=== PATIENT | male | born 1955 | race Caucasian/White ===

== ENCOUNTER 2020-05-17 08:53 | Inpatient (IN) | payer OTHER, SELFPAY ==
[2020-05-17] VITALS (19 sets, daily range): BP systolic 86–117; BP diastolic 56–71; PULSE 50–81; RESP 12–18; TEMP 36.7–37.6; O2SAT 91–100; BMI 32.4
--- NOTE | ~2020-05-17 | CT_ITS ---
EXAMINATION: CT brain wo con EXAM DATE: 05/17/2020 09:28 INDICATION: Same day. TECHNIQUE: Spiral CT of the head was performed without contrast. Axial, coronal and sagittal images were reviewed. The dose-length product (DLP) for this examination was 605.33 mGy-cm. The exposure w as tailored according to patient size, and iterative reconstruction (ASIR) was used as additional dos e reduction technique. There is no prior study for comparison. FINDINGS: There is no acute intraparenchymal hemorrhage. No evidence of intraparenchymal brain mass lesion. No evidence of acute infarction. There is no mass effect or midline shift. The ventricles are normal in size. There are no extra-axial collections. There are no acute calvarial fractures. T he orbits are unremarkable. Soft tissue is unremarkable. The visualized sinuses and mastoid air sara ls are well aerated. IMPRESSION: 1. No acute intracranial findings. Reviewed, dictated and finalized at location A.
--- NOTE | ~2020-05-17 | XR_ITS ---
EXAMINATION: XR chest 1V portable EXAM DATE: 05/17/2020 09:47 INDICATION: Syncope. TECHNIQUE: Portable AP frontal chest x-ray was obtained. There is no prior study for comparison. FINDINGS: The lungs are clear. There are no pleural effusions. Cardiac silhouette is prominent but magnified on this AP technique. There is no pneumothorax suspected. The bones and soft tissues are unremarkable. IMPRESSION: No acute cardiopulmonary findings. Reviewed, dictated and finalized at location A.
[2020-05-17 09:01] LABS: Glucose Point of Care 135 (65-105)
--- NOTE | 2020-05-17 09:05 | ED.SYNCOPE ---
HPI - Syncope General Chief Complaint: Syncope Stated Complaint: SYNCOPE Time Seen by Provider: 05/17/20 08:56 History of Present Illness HPI narrative: Patient presents via EMS for syncope. He does not remember the initial episode. Apparently he passed out for more times during transport. They gave atropine 0.5 mg for bradycardia. They also gave a liter of fluid. His pressure is 90 when he came here. He has had cough and fever for the last 4 days. He had a coworker test positive for COVID recently. He takes nitrates and beta-blockers on a daily basis. He has no pain. He still feels lightheaded. He has some sputum production with his cough. Surgeries include right shoulder and cholecystectomy. He does not smoke cigarette, he rarely drinks alcohol, he does not do drugs. 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 MD complaint: loss of consciousness Onset (ago): hour(s) -: second(s) Description of event: other (Bradycardia) Prodromal symptoms: lightheaded Witnessed: Yes - by Bystander Context: at rest and recent illness Injuries sustained associated with event: none Current symptoms: lightheaded History: other (Exposure to COVID, cough, fever) Treatments prior to arrival: IV fluids and other (Atropine 0.5 mg, 1 L of IV fluids) Related Data Home Medications Medication Instructions Recorded Confirmed amoxicillin 875 mg 05/17/20 aspirin [Aspir-81] 81 mg PO 05/17/20 azithromycin 250 mg 05/17/20 cholecalciferol (vitamin D3) 125 mcg PO DAILY 05/17/20 [Vitamin D3] coQ10 (ubiquinol) 200 mg PO DAILY 05/17/20 isosorbide mononitrate 30 mg PO DAILY 05/17/20 losartan 25 mg PO DAILY 05/17/20 metoprolol succinate 25 mg PO DAILY 05/17/20 niacin 500 mg 05/17/20 omeprazole 40 mg 05/17/20 rosuvastatin 40 mg PO DAILY 05/17/20 05/17/20 Allergies Allergy/AdvReac Type Severity Reaction Status Date / Time No Known Allergies Allergy Verified 05/17/20 09:06 Review of Systems Review of Systems: Narrative: CONSTITUTIONAL: He has had fever EYES: Denies visual changes, redness, or discharge. ENT: Denies rhinorrhea, congestion, sore throat, or otalgia. CARDIOVASCULAR: Denies chest pain, palpitations, or edema. He has been fainting. RESPIRATORY: He has cough but not dyspnea or wheezing. GASTROINTESTINAL: Denies abdominal pain, nausea, vomiting, or diarrhea. GENITOURINARY: Denies dysuria or hematuria. SKIN: Denies rash or itching. MUSCULOSKELETAL: Denies back pain, joint pain, or myalgia. NEUROLOGIC: Denies headache, numbness, or weakness. . PMFSH Past Medical History Medical History Hypercholesterolemia Hypertension Surgical History Surgical History (Updated 05/17/20 @ 09:11 by Eva Villafuerte MD) History of cholecystectomy History of shoulder surgery Family History Family History Other Diabetes mellitus Family history of malignant neoplasm Hypertension Social History Social History Smoking status: Former smoker Smoking end date: 10/20/12 Alcohol intake: current Gender identity (if verbalized by the patient): Male Exam Narrative: Exam Narrative: GENERAL: Well-appearing, well-nourished, and in no acute distress. HEAD: Normocephalic, atraumatic. EYES: PERRLA and EOMI. ENT: Nares clear, no rhinorrhea or epistaxis. Mucous membranes moist. NECK: Supple. CHEST: Clear to auscultation. No respiratory distress. HEART: Regular rate and rhythm. No murmur heard. Normal peripheral pulses. Bradycardic. ABDOMEN: Soft, nontender, nondistended, normal active bowel sounds. EXTREMITIES: Normal range of motion. No edema. SKIN: Warm, dry, no rash. NEURO: No focal deficits. Alert and oriented x3. PSYCH: Normal mood and affect. Course Consultations Consultation #1: Calling the hospitalist for admission, for syncope, hypotension, bradycard
[2020-05-17] MEDS: SODIUM CHLORIDE 0.9% IV 1,000 ML 999 ML IV CONT ×2 (09:18→11:41)
[2020-05-17 09:27] LABS: Basophils Percent Auto 0.4 % (0.2-1.2); Eosinophils Percent Auto 0.2 % (0-4.4); Hematocrit 41.2 % (42.0-52.0); Hemoglobin 13.7 g/dL (14.0-18.0); Immature Granulocyte Absolute 0.04 K/mm3 (0.00-0.031); Immature Granulocyte Percent A 0.8 % (0-0.5); Lymphocytes Percent Auto 16.2 % (18.3-44.2); Mean Corpuscular HGB Conc 33.3 g/dl (32-36); Mean Corpuscular Volume 90.4 fl (80-100); Mean Platelet Volume 10.1 fl (7.4-10.4); Monocytes Absolute Auto 0.6 K/mm3 (0.1-0.6); Monocytes Percent Auto 11.4 % (2.6-8.5); Neutrophils Absolute Auto 3.5 K/mm3 (1.3-6.7); Platelet Count Result 162 k/mm3 (150-375); Red Blood Count 4.56 M/mm3 (4.6-6.20); Red Cell Distribution Width 12.7 % (11.5-14.5); White Blood Count 4.9 K/mm3 (4.5-10.0)
[2020-05-17 09:46] LABS: Alanine Aminotransferase 64 U/L (4-50); Albumin Level 3.7 g/dL (3.5-5.1); Alkaline Phosphatase 45 U/L (38-126); Aspartate Amino Transferase 53 U/L (17-59); Bilirubin,Total 0.7 mg/dL (0.2-1.3); Calcium 7.9 mg/dL (8.4-10.2); Carbon Dioxide 22 mmol/L (22-30); Estimated Glomerular Filt Rate > 60; Glucose 135 mg/dL (75-110); Potassium 3.8 mmol/L (3.4-5.0); Sodium 136 mmol/L (137-145)
[2020-05-17 09:50] LABS: Ethanol < 10 mg/dL (<10)
[2020-05-17 09:55] LABS: Troponin I < 0.012 ng/mL (0.000-0.034)
[2020-05-17 10:00] LABS: Anion Gap 12.8 mmol/L (7-16); Blood Urea Nitrogen 16 mg/dL (9-20); Chloride 105 mmol/L (98-107)
[2020-05-17 10:40] LABS: Add Urine Microscopic? YES; Appearance Urine Clear (Clear); Bilirubin Urine Negative (Negative); Blood Urine Negative (Negative); Color Urine Yellow (Yellow); Glucose Urine UA Negative (Negative); Ketones Urine Negative (Negative); Leukocyte Esterase Ur Negative LEU/UL (Negative); Mucus Urine Rare /lpf; Nitrate Urine Negative (Negative); Protein Urine 2+ mg/dL (Negative); RBC Urine 0-2 /hpf (0-2); Specific Grav Ur 1.027 (1.001-1.035); Squamous Epithelial Cell Urine Rare /hpf (Few); Urobilinogen Urine Negative mg/dL (<2.0); WBC Urine 0-3 /hpf
[2020-05-17 10:54] LABS: Amphetamine Screen Urine Negative (Negative); Barbiturate Screen Urine Negative (Negative); Benzodiazepines Screen Urine Negative (Negative); Cannabinoid Screen Urine Negative (Negative); Cocaine Screen Urine Negative (Negative); Methadone Screen Urine Negative (Negative); Opiate Screen Urine Negative (Negative); Phencyclidine Screen Urine Negative (Negative)
--- NOTE | 2020-05-17 11:31 | PC.NURSE ---
Report given to LIN Donaldson by this RN. Care assumed by Anika at this time.
--- NOTE | 2020-05-17 11:44 | PC.NURSE ---
Checked on patient. Resting in room with no needs. EDP at bedside updating pt. IV fluuids started
[2020-05-17 12:37] LABS: Troponin I < 0.012 ng/mL (0.000-0.034)
--- NOTE | 2020-05-17 12:56 | ADMGEN ---
This patient, Phuc Campo, was admitted to 3 Med Surg Room 331-01 @ 1255. Patient/family oriented to hospital policies and general routines including ID bracelet, bed and alarms, visiting hours, pain management, procedures, bathroom and other care routines, personal items, smoking policy, room service/diet, and visiting hours. Valuables list has been completed. Information on how to activate the Rapid Response Team has been discussed. Patient/Family are encouraged to report perceived risks to care and to ask questions if they do not understand what they are told or what they should do.
--- NOTE | 2020-05-17 14:32 | ECG_ITS ---
Measurements Intervals [place] Rate: 53 P: 55 AR: 193 QRS: -23 QRSD: 126 T: 44 QT: 418 QTc: 393 Interpretive Statements SINUS BRADYCARDIA INCOMPLETE RIGHT BUNDLE BRANCH BLOCK DELAYED PRECORDIAL R/S TRANSITION BORDERLINE ECG Electronically Signed On 05-17-2020 16:06:04 CDT by Thanh Sutton D.O.
--- NOTE | 2020-05-17 15:07 | ECG_ITS ---
Measurements Intervals [place] Rate: 59 P: 45 MT: 165 QRS: -43 QRSD: 106 T: 31 QT: 421 QTc: 420 Interpretive Statements SINUS BRADYCARDIA LEFT AXIS DEVIATION INCOMPLETE RIGHT BUNDLE BRANCH BLOCK DELAYED PRECORDIAL R/S TRANSITION BORDERLINE ECG Electronically Signed On 05-17-2020 16:32:13 CDT by Thanh Sutton D.O.
[2020-05-17 15:34] LABS: Lactic Acid Reflex 1.5 mmol/L (0.7-2.1)
[2020-05-17 15:36] LABS: Anion Gap 11.1 mmol/L (7-16); Blood Urea Nitrogen 15 mg/dL (9-20); CRP 1.3 mg/dL (<1.0); Calcium 7.6 mg/dL (8.4-10.2); Carbon Dioxide 24 mmol/L (22-30); Chloride 105 mmol/L (98-107); Estimated CRCL calculation 106 ml/min; Estimated Glomerular Filt Rate > 60; Glucose 153 mg/dL (75-110); Lactate Dehydrogenase 440 U/L (313-618); Magnesium 1.9 mg/dL (1.6-2.3); Potassium 4.1 mmol/L (3.4-5.0); Sodium 136 mmol/L (137-145)
[2020-05-17 15:45] LABS: Troponin I < 0.012 ng/mL (0.000-0.034)
[2020-05-17 15:46] LABS: Troponin I < 0.012 ng/mL (0.000-0.034)
[2020-05-17 15:53] LABS: Partial Thromboplastin Time 27.1 SECONDS (22.3-36.8)
[2020-05-17 16:15] LABS: Thyroid Stimulating Hormone Reflex 0.318 uIU/mL (0.465-4.68)
[2020-05-17] MEDS: ACETAMINOPHEN 325 MG TABLET 650 MG PO (17:19)
[2020-05-17 18:02] LABS: Free T4 Free Thyroxine Reflex 0.84 ng/dL (0.78-2.19)
--- NOTE | 2020-05-17 19:00 | PM.IMHP ---
H&P: HPI History of Present Illness Chief complaint: Syncope. Narrative: Phuc Campo is a 65-year-old male with hypertension, dyslipidemia, sleep apnea, and GERD who presented to the emergency department earlier this morning via EMS for evaluation after several syncopal episodes. He has not been feeling well for approximately 5 days, initially with a sore throat and postnasal drip for which he was prescribed amoxicillin by his primary care provider however he has not felt much better. On Friday he started feeling much worse and was at work when he developed severe nausea, sweats, and generalized malaise. He left work early and later that evening he developed a fever of 102?. Since that time he has continued to have an intermittent fever, nausea, and poor appetite. After speaking with his primary care provider's office over the phone, he was prescribed a Z-Alistair yesterday and he was directed to have a COVID test done in [place] this morning (A co-worker had recently been diagnosed with COVID). His was driving him to [place] today when he began complaining of feeling extremely lightheaded, dizzy, and nauseated. He then had a syncopal episode and was unconscious for nearly 1 minute. called 911 and according to triage documentation, he had several other episodes of syncope in route to the hospital. His heart rate was in the 40s for which he was given atropine but with further questions, it sounds like his resting heart rate is always low but it is typically in the 50s. At the time of my evaluation, he reports feeling somewhat better although he still nauseated. He is not having any further lightheadedness or dizziness. He has not had chest pain, pleuritic pain, or palpitations. No vomiting or diarrhea. He denies significant cough and shortness of breath. Review of Systems Review of Systems: Narrative: 12 systems were reviewed with pertinent positives and negatives as per HPI. He denies headache. No focal weakness or paresthesias. No recent travel. He denies vomiting and diarrhea. No dysuria. No chest pain or pleuritic pain. No orthopnea or PND. No lower extremity edema. Except as documented, all other systems were reviewed and are negative. [facility] Past Medical History Medical History (Updated 05/17/20 @ 22:48 by Melanie Watson PA-C) Dyslipidemia Gastroesophageal reflux disease Hypertension Obstructive sleep apnea He uses a mandibular advancement device. Surgical History Surgical History (Updated 05/17/20 @ 22:37 by Melanie Watson PA-C) History of cardiac catheterization Patient reports clear coronary arteries. History of cholecystectomy History of repair of right rotator cuff Family History Family History (Updated 05/17/20 @ 22:39 by Melanie Watson PA-C) Mother Hypertension Dementia Father Heart failure Acute myocardial infarction Father of an [place] at age 62. Sibling Acute myocardial infarction Sister of heart disease in her 60s. Other Diabetes mellitus Family history of malignant neoplasm Social History Social History (Updated 05/17/20 @ 22:40 by Melanie Watson PA-C) Social History: Surrogate decision maker: mark Campo, . Code status: Full code. Smoking packs per day: 1.5 Smoking cigarettes per day: 30.0 Years smoked: 35 Smoking pack-years: 52.50 Smoking status: Former smoker Tobacco type: cigarettes Smoking end date: 10/20/12 Alcohol intake: current Alcohol use details: He drinks alcohol socially and in moderation. Maybe once every 2 months. Substance use: never Additional living arrangements comments: Patient lives with his in [place]. They have 5 adult children. 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 Gender identity (if verbalized by the patient): Male Spiritual care concerns: No Meds Home Medications and Allergies Home M
[2020-05-17 19:24] LABS: Total Triiodothyronine (T3) 0.85 NG/ML (0.97-1.69)
[2020-05-17 19:47] LABS: SARS-CoV-2 RNA PCR Positive
[2020-05-18] VITALS (12 sets, daily range): BP systolic 123–155; BP diastolic 69–82; PULSE 51–64; RESP 20; TEMP 37–38.1; O2SAT 97–99
[2020-05-18] MEDS: ACETAMINOPHEN 325 MG TABLET 650 MG PO ×2 (02:35→10:20)
[2020-05-18 06:38] LABS: Basophils Percent Auto 0.2 % (0.2-1.2); Hematocrit 42.3 % (42.0-52.0); Hemoglobin 13.9 g/dL (14.0-18.0); Immature Granulocyte Absolute 0.02 K/mm3 (0.00-0.031); Immature Granulocyte Percent A 0.4 % (0-0.5); Lymphocytes Absolute Auto 1.33 K/mm3 (0.9-3.2); Lymphocytes Percent Auto 27.9 % (18.3-44.2); Mean Corpuscular HGB Conc 32.9 g/dl (32-36); Mean Corpuscular Hemoglobin 29.5 pg (26-34); Mean Corpuscular Volume 89.8 fl (80-100); Mean Platelet Volume 9.9 fl (7.4-10.4); Monocytes Absolute Auto 0.6 K/mm3 (0.1-0.6); Monocytes Percent Auto 11.6 % (2.6-8.5); Neutrophils Absolute Auto 2.9 K/mm3 (1.3-6.7); Neutrophils Percent Auto 59.9 % (45.5-73.1); Platelet Count Result 175 k/mm3 (150-375); Red Blood Count 4.71 M/mm3 (4.6-6.20); Red Cell Distribution Width 12.5 % (11.5-14.5); White Blood Count 4.8 K/mm3 (4.5-10.0)
[2020-05-18 06:51] LABS: Anion Gap 12.1 mmol/L (7-16); Blood Urea Nitrogen 13 mg/dL (9-20); CRP 1.2 mg/dL (<1.0); Calcium 8.3 mg/dL (8.4-10.2); Carbon Dioxide 25 mmol/L (22-30); Chloride 104 mmol/L (98-107); Estimated CRCL calculation 106 ml/min; Estimated Glomerular Filt Rate > 60; Glucose 95 mg/dL (75-110); Lactate Dehydrogenase 507 U/L (313-618); Magnesium 1.9 mg/dL (1.6-2.3); Potassium 4.1 mmol/L (3.4-5.0); Sodium 137 mmol/L (137-145)
[2020-05-18] MEDS: AZITHROMYCIN 250 MG TABLET PO (08:18)
[2020-05-18] MEDS: ROSUVASTATIN 10 MG TABLET 40 MG PO (08:18)
[2020-05-18] MEDS: CHOLECALCIFEROL 1,000 UNIT TABLET 5000 UNITS PO (08:18)
[2020-05-18] MEDS: ASPIRIN 81 MG ENTERIC TABLET PO (08:18)
[2020-05-18] MEDS: PANTOPRAZOLE 40 MG TABLET PO (08:18)
[2020-05-18 10:57] LABS: Hemoglobin A1C 5.7 % (<5.7)
--- NOTE | 2020-05-18 14:39 | PM.DS ---
DS: Admitting Diagnosis Admitting Diagnosis Admitting Diagnosis: COVID-19 DS: Discharge Diagnosis Discharge Diagnosis (1) COVID-19: Code(s): U07.1 - COVID-19 Status: Acute Assessment and Plan: He has no cough, shortness of breath, or abnormal chest x-ray findings. Educated on isolation recommendations and symptoms to watch for. (2) Syncope: Code(s): R55 - Syncope and collapse Status: Acute Assessment and Plan: Likely due to hypotension and mild dehydration from poor oral intake the past couple of days. No further epsidoes while here. Received a 1L NS bolus in ED. Less likely that is due to bradycardia as he is having no symptoms of lightheadedness or dizziness with his current heart rate in the 50s. CT brain normal. (3) Bradycardia: Code(s): R00.1 - Bradycardia, unspecified Status: Acute Assessment and Plan: He described his heart rate normally runs on the lower end in 50s-60s. Sinus bradycardia on telemetry. Follow up with his established sales operations assistant. (4) Hypertension: Code(s): I10 - Essential (primary) hypertension Status: Acute Assessment and Plan: Bood pressures were initially soft, but have responded to IV fluids. His BP meds were held but resumed at discharge. BP stable day of discharge last 155/82. (5) Obstructive sleep apnea: Code(s): G47.33 - Obstructive sleep apnea (adult) (pediatric) Status: Acute Assessment and Plan: He uses a mandibular advancement device. (6) Hyperglycemia: Code(s): R73.9 - Hyperglycemia, unspecified Status: Acute Assessment and Plan: Random glucose 153. A1c 5.7. DS: Summary Hospital Course Hospital Course: Date of Service 05/18/20 Mr. Campo is a 65yo M with history of hypertension, dyslipidemia, sleep apnea and GERD who presented to the ED for evaluation after multiple syncopal episodes over the course of a day. He had been feeling unwell for approximately 5 days. His symptoms included sore throat and postnasal drip for which he was prescribed antibiotics by PCP. He was not feeling much better and developed fever, malaise, nausea, and sweats. He was advised to go for outpatient COVID testing and on his way there, he passed out in the car ( was driving). According to EMR, called 911 and he had 3 or 4 more episodes of syncope with EMS. His heart rate was in the 40s for which he was given atropine but with further questions, it sounds like his resting heart rate is always low but it is typically in the 50s. He was admitted and treated with bolus of normal saline and monitored overnight. COVID-19 testing was positive 05/17/20. He had no respiratory symptoms such as cough or shortness of breath. Chest XR showed no evidence of pneumonia. CT brain was unremarkable. Echocardiogram was ordered but patient explained he just had thorough cardiac workup with his established sales operations assistant a few months prior, thus echo was cancelled. He did have some sinus bradycardia on telemetry (HR 50s) but workup otherwise unremarkable. At time of my evaluation the following morning, he was feeling improved and eager for discharge. He was ambulating independently without dizziness. Etiology for syncope unclear although was likely related to dehydration from viral syndrome with COVID-19. He was educated on isolation protocols and return to ER instructions. He was instructed to follow up with PCP next week. Time Spent with Patient Time attestation: Total time spent providing and/or coordinating discharge services: 35 minute Exam Narrative: Exam Narrative: General: Male sitting up comfortably in bed in no acute distress. HEENT: Normocephalic, atraumatic. PERRL, EOMI. Sclerae anicteric. Oral mucosa moist. Neck: Sup
--- NOTE | 2020-05-31 12:55 | PC.NURSE ---
LATE ENTRY This note is being entered to document information to the patient's record. The following information was omitted on [05/17/20], by [Marina Valdez]. NS fluids done at 1230pm 1000cc infused.
== END 2020-05-18 16:44 | disposition home or self-care (01) | DRG 179 ==
LOC: ANHED 09:32 → ANH3MEDSUR 11:59
PROVIDERS: Physician Assistant; Admitting Provider Family Medicine; Emergency Provider Emergency Medicine; PCP Internal Medicine; Visit Provider Family Medicine
DX: U07.1 COVID-19 (principal); R55 Syncope and collapse; E86.0 Dehydration; I95.9 Hypotension, unspecified; R00.1 Bradycardia, unspecified; G47.33 Obstructive sleep apnea (adult) (pediatric); I10 Essential (primary) hypertension; R73.9 Hyperglycemia, unspecified; E78.5 Hyperlipidemia, unspecified; K21.9 Gastro-esophageal reflux disease without esophagitis; Z90.49 Acquired absence of other specified parts of digestive tract; Z87.891 Personal history of nicotine dependence
CPT/HCPCS: 36415; 51701; 70450; 71045; 80048; 80053; 80307; 81001; 82728; 82948; 83036; 83605; 83615; 83735; 84439; 84443; 84480; 84484; 85025; 85730; 86140; 87040; 87635; 93005; 96360; 99285; A9270; C9803; J7030; U0003

== ENCOUNTER 2023-01-03 01:13 | Day surgery (SDC) | payer OTHER, SELFPAY ==
[2022-12-27 10:08] VITALS: BMI 33.0
[2023-01-03 07:42] VITALS: BP 122/79; PULSE 60; RESP 18; TEMP 36.1; O2SAT 100
[2023-01-03] MEDS: LACTATED RINGERS 1,000 ML 150 ML IV CONT (07:44)
--- NOTE | 2023-01-03 08:09 | WPDANESEPPF ---
Anes - Initial Pre Proc Eval Procedure: Operation Date: 01/03/23 08:30 Proposed Procedures p Screening Colonoscopy - Ricardo Godinez MD Date/Time: 01/03/23 08:09 Surgeon: Ricardo Godinez MD Pre Op Diagnosis: neoplasm screening Patient Data Age: 67 Gender: M Height: 1.85 m Weight: 111.7 kg Last Vital Signs Temp 36.1 C L 01/03/23 07:42 Pulse 60 01/03/23 07:42 Resp 18 01/03/23 07:42 BP 122/79 01/03/23 07:42 Pulse Ox 100 01/03/23 07:42 O2 Del Method Room Air 01/03/23 07:42 Allergies Allergy/AdvReac Type Severity Reaction Status Date / Time No Known Allergies Allergy Verified 01/03/23 07:40 Home Medications Medication Instructions Recorded Confirmed Type aspirin 81 mg tablet,delayed 81 mg PO DAILY 05/17/20 01/03/23 History release (Aspir-) cholecalciferol (vitamin D3) 125 125 mcg PO DAILY 05/17/20 01/03/23 History mcg (5,000 unit) tablet (Vitamin D3) losartan 25 mg tablet 25 mg PO DAILY 05/17/20 01/03/23 History omeprazole 40 mg capsule,delayed 40 mg PO DAILY 05/17/20 01/03/23 History release rosuvastatin 40 mg tablet 40 mg PO DAILY 05/17/20 01/03/23 History cyclobenzaprine 10 mg tablet 10 mg PO QHS 09/25/22 01/03/23 History finasteride 5 mg tablet 5 mg PO DAILY 09/25/22 01/03/23 History meloxicam 15 mg tablet 15 mg PO DAILY #30 tabs 09/25/22 01/03/23 Rx rivaroxaban 20 mg tablet (Xarelto) 20 mg PO DAILY 09/25/22 01/03/23 History Patient hx anesthesia problems: none Family hx anesthesia problems: none Results Review: All pre-operative results and documents have been reviewed as part of the pre-operative evaluation. [facility] Past Medical History Medical History Dyslipidemia Encounter for screening for malignant neoplasm of prostate Gastroesophageal reflux disease History of atrial fibrillation Hypertension Obstructive sleep apnea He uses a mandibular advancement device. Screening for colon cancer Surgical History Surgical History H/O hernia repair History of cardiac catheterization Patient reports clear coronary arteries. History of carpal tunnel release History of cholecystectomy History of repair of right rotator cuff Family History Family History Mother Hypertension Dementia Father Heart failure Acute myocardial infarction Father of an [place] at age 62. Sibling Acute myocardial infarction Sister of heart disease in her 60s. Other Diabetes mellitus Family history of malignant neoplasm Social History Social History Social History: Surrogate decision maker: mark Campo, . Code status: Full code. Smoking packs per day: 1.5 Smoking cigarettes per day: 30.0 Years smoked: 40 Smoking pack-years: 60.00 Smoking status: Former smoker Tobacco type: cigarettes Smoking end date: 10/20/12 Alcohol intake: current Drinks per week: 4 Alcohol use details: WINE Substance use: never Substance use type: does not use Living arrangements: with family Additional living arrangements comments: Patient lives with his in [place]. They have 5 adult children. 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 Gender identity (if verbalized by the patient): Male Spiritual care concerns: No Anes - Eval Final PreProcedure Day of Procedure 01/03/23 08:09 Patient weight: obese Heart: regular rate and rhythm Lungs: clear to auscultation Airway: Mallampati scale class II Neurological: alert and oriented Last oral intake: >/= 8 hours ASA classification: III Emergent: no Anesthetic plan: proceed Anesthesia type and monitoring: general GIVS and standard monitoring Results Review: All pre-operative results and d
--- NOTE | 2023-01-03 08:20 | PM.HPGS ---
History of Present Illness History of Present Illness Consent: Risks, benefits, and alternatives have been discussed and questions answered. Patient agrees to proceed with procedure. Chief complaint: neoplasm screening Narrative: Phuc Campo is a 67 year old male here for screening colonoscopy, last one 10 years ago Review of Systems Constitutional: Constitutional: Denies headache(s) and Denies weakness Eyes: Eyes: Denies blurry vision ENT: Reports Normal hearing present, Denies headache(s) and Denies neck pain Cardiovascular: Cardiovascular: Denies chest pain and Denies dyspnea Respiratory: Respiratory: Denies dyspnea Gastrointestinal: Gastrointestinal: Reports no additional gastrointestinal complaints Genitourinary: Genitourinary: Denies dysuria Musculoskeletal: Musculoskeletal: Denies neck pain Integumentary/Breasts: Skin/Breast: Denies dry skin Neurologic: Reports Normal hearing present, Denies headache(s) and Denies weakness Psychiatric: Psychiatric: Denies anxiety Endocrine: Endocrine: Denies change in body appearance Hematologic/Lymphatic: Hematologic/Lymphatic: Denies easy bleeding Allergic/Immunologic: Allergic/Immunologic: Denies urticaria PMFSH Past Medical History Medical History Dyslipidemia Encounter for screening for malignant neoplasm of prostate Gastroesophageal reflux disease History of atrial fibrillation Hypertension Obstructive sleep apnea He uses a mandibular advancement device. Screening for colon cancer Surgical History Surgical History H/O hernia repair History of cardiac catheterization Patient reports clear coronary arteries. History of carpal tunnel release History of cholecystectomy History of repair of right rotator cuff Family History Family History Mother Hypertension Dementia Father Heart failure Acute myocardial infarction Father of an [place] at age 62. Sibling Acute myocardial infarction Sister of heart disease in her 60s. Other Diabetes mellitus Family history of malignant neoplasm Social History Social History Social History: Surrogate decision maker: mark Campo, . Code status: Full code. Smoking packs per day: 1.5 Smoking cigarettes per day: 30.0 Years smoked: 40 Smoking pack-years: 60.00 Smoking status: Former smoker Tobacco type: cigarettes Smoking end date: 10/20/12 Alcohol intake: current Drinks per week: 4 Alcohol use details: WINE Substance use: never Substance use type: does not use Living arrangements: with family Additional living arrangements comments: Patient lives with his in [place]. They have 5 adult children. 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 Gender identity (if verbalized by the patient): Male Spiritual care concerns: No Meds Home Medications and Allergies Home Medications Medication Instructions Recorded Confirmed Type aspirin 81 mg tablet,delayed 81 mg PO DAILY 05/17/20 01/03/23 History release (Aspir-) cholecalciferol (vitamin D3) 125 125 mcg PO DAILY 05/17/20 01/03/23 History mcg (5,000 unit) tablet (Vitamin D3) losartan 25 mg tablet 25 mg PO DAILY 05/17/20 01/03/23 History omeprazole 40 mg capsule,delayed 40 mg PO DAILY 05/17/20 01/03/23 History release rosuvastatin 40 mg tablet 40 mg PO DAILY 05/17/20 01/03/23 History cyclobenzaprine 10 mg tablet 10 mg PO QHS 09/25/22 01/03/23 History finasteride 5 mg tablet 5 mg PO DAILY 09/25/22 01/03/23 History meloxicam 15 mg tablet 15 mg PO DAILY #30 tabs 09/25/22 01/03/23 Rx rivaroxaban 20 mg tablet (Xarelto) 20 mg PO DAILY 09/25/22 01/03/23 History Allergies Allergy/AdvReac Type Severity Reaction Status
[2023-01-03 08:57] VITALS: BP 98/72; PULSE 64; RESP 15; O2SAT 100
[2023-01-03 09:07] VITALS: BP 116/73; PULSE 60; RESP 24; O2SAT 100
[2023-01-03 09:17] VITALS: BP 108/77; PULSE 54; RESP 16; O2SAT 100
== END 2023-01-03 09:20 | disposition home or self-care (01) ==
PROVIDERS: PCP Family Medicine; Visit Provider Internal Medicine Gastroenterology
PROC: 0DJD8ZZ Inspection of Lower Intestinal Tract, Via Natural or Artificial Opening Endoscopic (ICD-10-PCS; CPT 45378; principal; 2023-01-03 08:30)
DX: Z12.11 Encounter for screening for malignant neoplasm of colon (principal); D12.2 Benign neoplasm of ascending colon; K57.30 Diverticulosis of large intestine without perforation or abscess without bleeding; I10 Essential (primary) hypertension; I48.91 Unspecified atrial fibrillation; E78.5 Hyperlipidemia, unspecified; K21.9 Gastro-esophageal reflux disease without esophagitis; G47.33 Obstructive sleep apnea (adult) (pediatric); Z79.82 Long term (current) use of aspirin; Z79.01 Long term (current) use of anticoagulants; Z87.891 Personal history of nicotine dependence; E66.9 Obesity, unspecified; Z68.32 Body mass index [BMI] 32.0-32.9, adult
CPT/HCPCS: 45385; 88305; J2704; J7120

== ENCOUNTER 2023-12-09 12:05 | Outpatient (CLI) | payer OTHER, SELFPAY ==
--- NOTE | ~2023-12-09 | XR_ITS ---
EXAMINATION: XR abdomen/kub 1V INDICATION: Kidney stone follow-up TECHNIQUE: Supine views of the abdomen were obtained on 2 radiographs. COMPARISON: None FINDINGS: A 6 mm calcification projects between the left L3 and L4 transverse processes. A moderate v olume of colonic stool is present. Surgical clips in the right upper quadrant are likely from prior c holecystectomy. An endovascular stent projects in the midabdomen. There is mild osteoarthritis of the hips. Left pelvic surgical enmanuel likely reflect inguinal hernia repair. The visualized lung bases are clear. IMPRESSION: 1. Possible left mid ureteral stone. Reviewed, dictated and finalized at location L. [employer]
== END 2023-12-09 12:06 | disposition home or self-care (01) ==
LOC: ANHIMG 12:06
PROVIDERS: PCP Family Medicine; Visit Provider Urology
DX: N20.0 Calculus of kidney (principal)
CPT/HCPCS: 74018

== ENCOUNTER 2023-12-19 13:49 | Outpatient (CLI) | payer OTHER, SELFPAY ==
[2023-12-19 14:34] LABS: INR 0.9; Prothrombin Time 12.8 Seconds (11.1-14.7)
[2023-12-19 14:35] LABS: Partial Thromboplastin Time 26.3 SECONDS (22.3-36.8)
== END 2023-12-19 13:50 | disposition home or self-care (01) ==
LOC: ANHSURGERY 13:53
PROVIDERS: PCP Family Medicine; Visit Provider Urology
DX: Z01.818 Encounter for other preprocedural examination (principal); N20.0 Calculus of kidney
CPT/HCPCS: 36415; 85610; 85730; 87086

== ENCOUNTER 2023-12-26 00:34 | Day surgery (SDC) | payer OTHER, SELFPAY ==
[2023-12-16 15:08] VITALS: BMI 32.3
--- NOTE | 2023-12-16 15:33 | PC.NURSE ---
PRE-OP INSTRUCTIONS, PLEASE READ CAREFULLY Report to the Outpatient Waiting Room, entrance under the green pavilion located off [facility], at time _0630_ on date _12/26/23_. Planned Procedure Time: _0830_. Time changes happen often and if your time is changed the preop area will call you the afternoon before. - You and your visitor will be asked to self-screen and do not enter if you have any COVID symptoms. - A mask is optional within the hospital at this time. Patients may have clear liquids (water, carbonated beverages, clear teas, apple juice) until 3 hours prior to surgery (0530 AM) with a maximum of 20 ounces. - No food from midnight until time of surgery Take the following medications with a SIP of water the morning of surgery: _CYCLOBENZAPRINE IF NEEDED_ DO NOT STOP ANY OF YOUR OTHER PRESCRIPTION MEDICATIONS PRIOR TO SURGERY ?EXCEPT THE FOLLOWING Medications to discontinue - _ASPIRIN, MELOXICAM & RIVAROXABAN PER DR. AWAN'S INSTRUCTIONS_ Please no make-up, nail serbian, hairspray, perfume, deodorant, or body powder the day of surgery. No jewelry (including any body piercings) or valuables the day of surgery, leave them at home. Please take a shower or bath the night before, or the morning of, surgery with an antibacterial soap. Wear comfortable, loose fitting clothing. - Jewelry must be removed prior to entering the operating room. Rings and piercings that are not removed may be cut off. - The hospital will not accept responsibility for valuables. - Please leave all valuables, including medications, at home the day of surgery. If you are going home after surgery, a licensed courtesy van driver must drive you home. - NO public transportation without another adult if you receive anesthesia. - We recommend that an adult stay with you for 24 hours following discharge. - We also recommend that you do not drive, make important decision, drink alcoholic beverages, or take any drugs that were not prescribed by your health care provider for at least 24 hours after your discharge time. Follow any additional instructions given to you from your surgeon. If you or anyone in your household have experienced Covid symptoms in the past week, please notify your surgeon or the nurse liaison at the phone number below for possible testing. Telephone instructions given to _PATIENT_and asked if any additional questions and then verbalized understanding. Patient advised to call surgeon office or pre surgery nurse liaison [phone] if any additional questions.
--- NOTE | 2023-12-25 13:42 | WPDANESEPPF ---
Anes - Initial Pre Proc Eval Procedure: Operation Date: 12/26/23 08:30 Proposed Procedures p Left Extracorporeal Shock Wave Lithotripsy - Eliazar Rodarte MD Date/Time: 12/25/23 13:42 Surgeon: Eliazar Rodarte MD Pre Op Diagnosis: kidney stones Patient Data Age: 68 Gender: M Height: 1.85 m Weight: 111.36 kg Allergies Allergy/AdvReac Type Severity Reaction Status Date / Time No Known Allergies Allergy Verified 12/26/23 07:11 Home Medications Medication Instructions Recorded Confirmed Type aspirin 81 mg tablet,delayed 81 mg PO DAILY 05/17/20 12/26/23 History release (Aspir-) cholecalciferol (vitamin D3) 125 125 mcg PO DAILY 05/17/20 12/26/23 History mcg (5,000 unit) tablet (Vitamin D3) omeprazole 40 mg capsule,delayed 40 mg PO DAILY PRN ACID REFLEX 05/17/20 12/26/23 History release rosuvastatin 40 mg tablet 40 mg PO DAILY 05/17/20 12/26/23 History cyclobenzaprine 10 mg tablet 10 mg PO QHS 09/25/22 12/26/23 History finasteride 5 mg tablet 5 mg PO DAILY 09/25/22 12/26/23 History rivaroxaban 20 mg tablet (Xarelto) 20 mg PO DAILY 09/25/22 12/26/23 History meloxicam 15 mg tablet See Rx Instructions .Route 09/24/23 12/26/23 Rx .COMPLEX #30 tabs losartan 50 mg tablet 50 mg PO DAILY #90 tabs 10/02/23 12/26/23 Rx Patient hx anesthesia problems: none Family hx anesthesia problems: none Results Review: All pre-operative results and documents have been reviewed as part of the pre-operative evaluation. [facility] Past Medical History Medical History (Updated 12/25/23 @ 13:43 by Sher Herrera DO) Annual physical exam Atrial fibrillation Dyslipidemia Encounter for screening for malignant neoplasm of prostate Gastroesophageal reflux disease History of atrial fibrillation Hypertension Hypothyroidism Obstructive sleep apnea He uses a mandibular advancement device. Screening for colon cancer Sinusitis Surgical History Surgical History (Updated 12/25/23 @ 13:43 by Sher Herrera DO) H/O hernia repair History of AAA (abdominal aortic aneurysm) repair History of cardiac catheterization Patient reports clear coronary arteries. History of carpal tunnel release History of cholecystectomy History of repair of right rotator cuff Family History Family History Mother Hypertension Dementia Father Heart failure Acute myocardial infarction Father of an VT at age 62. Sibling Acute myocardial infarction Sister of heart disease in her 60s. Other Diabetes mellitus Family history of malignant neoplasm Social History Social History Social History: Surrogate decision maker: mark Campo, . Code status: Full code. Smoking packs per day: 1.5 Smoking cigarettes per day: 30.0 Years smoked: 40 Smoking pack-years: 60.00 Smoking status: Former smoker Tobacco type: cigarettes Second hand tobacco smoke exposure: No Smoking end date: 10/20/12 Alcohol intake: current Drinks per week: 4 Alcohol use details: 1 DRINK EVERY 1-2 WEEKS Substance use: never Substance use type: does not use Living arrangements: with family Additional living arrangements comments: Patient lives with his in [place]. They have 5 adult children. 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 Gender identity (if verbalized by the patient): Male Spiritual care concerns: No Anes - Eval Final PreProcedure Day of Procedure 12/25/23 13:42 Patient weight: obese Heart: regular rate and rhythm Lungs: clear to auscultation Airway: Mallampati scale class II Neurological: alert and oriented Last oral intake: >/= 8 hours ASA classification: III Emergent: no Anesthetic plan: proceed Anesthesia type and monitoring: general LMA and standard monitoring Results Review: All pre
[2023-12-26] VITALS (8 sets, daily range): BP systolic 140–162; BP diastolic 82–93; PULSE 50–55; RESP 10–18; TEMP 36.1–36.3; O2SAT 98–100
--- NOTE | ~2023-12-26 | XR_ITS ---
Supine and upright views of the abdomen Clinical history: Lithotripsy COMPARISON: 12/09/2023 Findings: Bowel gas pattern is nonspecific. No evidence for obstruction or free air. Stable 6 mm dens ity projecting between the L3 and L4 left transverse processes.. Osseous structures are intact. Impression: Stable 6 mm density/calcification projected between the left L3 and L4 transverse processes, indeterm inate. Reviewed, dictated and finalized at location . [employer] Impression: Stable 6 mm density/calcification projected between the left L3 and L4 transver se processes, indeterminate.
--- NOTE | 2023-12-26 06:23 | WPDHPUPDATE1 ---
History and Physical Update Update Date/Time: 12/26/23 06:23 History and Physical has been reviewed, including an updated exam of the patient. There are NO changes in the patient's condition. Risks, benefits, and alternatives have been discussed and questions answered. Patient agrees to proceed with procedure.
[2023-12-26] MEDS: LACTATED RINGERS 1,000 ML 30 ML IV CONT ×2 (06:53→10:00)
[2023-12-26] MEDS: ceFAZolin 2 GM/D5W 50 ML 2 GM/50 ML BAG IVPB (08:10)
--- NOTE | 2023-12-26 08:43 | W.PM.PROC2 ---
Procedure Note - Detailed Date of Procedure 12/26/23 Pre-op Diagnosis Left uretreral stone Post-op Diagnosis Same Procedure Performed Left ESWL Surgeon Eliazar Rodarte MD Anesthesia General Description of Procedure The patient was brought to the operative suite where he was placed in the supine position on the Dornier lithotripsy table. The focal point of the lithotripter was placed at a 6mm left mid-ureteral calculus. A total of 3000 shocks were delivered at a power setting of 6. There appeared to be good fragmentation of the stone. The patient tolerated the procedure well and was taken to the recovery room in good condition.
[2023-12-26] MEDS: oxyCODONE HCL (*CRX) 5 MG TAB IR PO (09:47)
[2023-12-26] MEDS: ONDANSETRON INJ 4 MG/2 ML VIAL IV PUSH (09:55)
== END 2023-12-26 11:08 | disposition home or self-care (01) ==
PROVIDERS: PCP Family Medicine; Visit Provider Urology
PROC: (CPT 50590; principal; 2023-12-26 08:30)
DX: N20.1 Calculus of ureter (principal); I48.91 Unspecified atrial fibrillation; E78.5 Hyperlipidemia, unspecified; K21.9 Gastro-esophageal reflux disease without esophagitis; I10 Essential (primary) hypertension; E03.9 Hypothyroidism, unspecified; G47.33 Obstructive sleep apnea (adult) (pediatric); Z79.82 Long term (current) use of aspirin; Z79.01 Long term (current) use of anticoagulants; Z87.891 Personal history of nicotine dependence; E66.9 Obesity, unspecified; Z68.32 Body mass index [BMI] 32.0-32.9, adult
CPT/HCPCS: 50590; 74018; A9270; J0690; J1100; J2405; J2704; J7120

== ENCOUNTER 2024-02-06 14:45 | Outpatient (CLI) | payer OTHER, SELFPAY ==
--- NOTE | ~2024-02-06 | CT_ITS ---
EXAMINATION: CT abdomen pelvis wo con DATE: 02/06/2024 14:58 INDICATION: Kidney stones. TECHNIQUE: Computed tomography (CT) of the abdomen and pelvis was performed without intravenous contr ast. Automated exposure control and iterative reconstruction technique were employed. The dose-length product was 558.26 mGy-cm. COMPARISON: None. FINDINGS: The visualized portions of the lung bases demonstrate mild atelectasis. No pleural effusion . The heart size is normal. There are coronary artery calcifications. No pericardial effusion. There are cysts in the liver measuring up to 3.1 cm. There are changes of cholecystectomy. The spleen and p ancreas are normal. There is a 13 mm mass in right adrenal gland measuring low-attenuation, consisten t with an adenoma. There is a 17 mm mass in left adrenal gland measuring soft tissue attenuation. The re is a 4 mm stone in right kidney. There is a 1 mm stone in left kidney. There is a 5 mm stone in th e bladder. Stool distends the rectum. There is diverticulosis of the colon without evidence of divert iculitis. The appendix is normal. Aortic atherosclerosis is noted. There is a stent graft in abdomina l aorta. There are no pathologically enlarged lymph nodes. There is no free intraperitoneal fluid. Th ere is mild thoracic and lumbar spondylosis. IMPRESSION: 1. Small nonobstructing kidney stones. 2. Bladder stone. 3. 17 mm left adrenal mass. In the absence of of known malignancy, this finding is likely an adenoma. Reviewed, dictated and finalized at location E.
== END 2024-02-06 14:46 | disposition home or self-care (01) ==
LOC: ANHIMG 14:46
PROVIDERS: PCP Family Medicine; Visit Provider Urology
DX: N20.0 Calculus of kidney (principal); N21.0 Calculus in bladder; E27.9 Disorder of adrenal gland, unspecified
CPT/HCPCS: 74176

== ENCOUNTER 2024-05-21 14:27 | Outpatient (CLI) | payer OTHER, SELFPAY ==
--- NOTE | ~2024-05-21 | XR_ITS ---
EXAMINATION: XR abdomen/kub 1V DATE: 05/21/2024 14:46 INDICATION: Renal stones TECHNIQUE: A supine view of the abdomen on 2 radiographs was obtained. COMPARISON: CT dated 02/06/2024 FINDINGS: 2-3 mm stone projecting over the lower pole of the right kidney. A few phleboliths in the pelvis. Sma ll to moderate amount of stool scattered throughout the colon. No dilated loops of gas-filled bowel t o suggest obstruction. Cholecystectomy clips in the right upper quadrant. Aortic endoluminal stent pr ojecting over the mid lumbar spine. Surgical clips in the left pelvis likely related to prior left in guinal hernia repair. Visualized lung bases are clear with no pleural effusion. Partially visualized cardiac pacemaker lead with tip likely in the right ventricle. IMPRESSION: 1. 2-3 mm right renal stone. Reviewed, dictated and finalized at location A.
== END 2024-05-21 14:28 | disposition home or self-care (01) ==
PROVIDERS: PCP Physician Assistant Medical; Visit Provider Urology
DX: N20.0 Calculus of kidney (principal)
CPT/HCPCS: 74018